=== PATIENT | male | born 2000 | race Native Hawaiian/Other Pacific Islander ===

== ENCOUNTER 2021-09-12 13:21 | Emergency (ER) | payer BC ==
[~2021-09-12] VITALS: Ht 170.1 cm; Wt 58.7 kg
--- NOTE | 2021-09-12 14:09 | ED Abdominal Pain ---
General Stated Complaint: ABD PAIN Source of Information: Patient Exam Limitations: No Limitations (ESTHER HAWTHORNE) History of Present Illness Date Seen by Provider: September 12, 2021 Time Seen by Provider: 14:07 Initial Comments Patient is a 20-year-old male who presents ED with abdominal pain. Pain started around 12:00 today. Patient woke up with a dull achy pain to his mid abdomen. Started in his lower abdomen and radiate upwards. Patient states he tried to have a bowel movement without any improvement. Attempted to take a shower with very minimal improvement. Pain started improving while sitting out in the waiting room. Nausea without vomiting. No diarrhea. Normal bowel movements. No history of previous abdominal surgery. Denies any urinary symptoms such as hematuria, frequent urination, back pain, flank pain. Denies any fever. Denies taking thing for pain. No history of previous symptoms. (ESTHER HAWTHORNE) Allergies and Home Medications Allergies Coded Allergies: No Known Drug Allergies (Unverified , 09/12/21) Patient Home Medication List Home Medication List Reviewed: Yes (ESTHER HAWTHORNE) Amoxicillin/Potassium Clav (Amox Tr-K Clv 875-125 mg Tab) 875 Mg-125 Mg Tablet, 1 EACH PO BID Prescribed by: CAMRON LANCASTER on 09/12/21 1532 Review of Systems Review of Systems Constitutional: No chills, No diaphoresis, No malaise, No weakness EENTM: No Ear Drainage, No Ear Pain, No Mouth Pain Respiratory: Denies Cough, Denies Orthopnea, Denies Shortness of Air Cardiovascular: Denies Chest Pain, Denies Edema Gastrointestinal: Abdominal Pain; Denies Diarrhea; Nausea; Denies Vomiting Genitourinary: Denies Burning, Denies Discharge Musculoskeletal: No back pain, No joint pain Skin: No change in color, No change in hair/nails (ESTHER HAWTHORNE) All Other Systems Reviewed Negative Unless Noted: Yes (ESTHER HAWTHORNE) Physical Exam Vital Signs Vital Signs - First Documented 09/12/21 09/12/21 14:11 15:30 Temp 36.6 Pulse 69 Resp 16 B/P (MAP) 128/97 (107) Pulse Ox 99 O2 Delivery Face Tent (LATOYA MOSQUERA MD) Vital Signs Capillary Refill : (ESTHER HAWTHORNE) Height/Weight/BMI Height: '" Weight: lbs. oz. kg; BMI Method: General Appearance: WD/WN, no apparent distress HEENT: PERRL/EOMI, normal ENT inspection, TMs normal, pharynx normal Neck: non-tender, full range of motion, supple Respiratory: chest non-tender, lungs clear, normal breath sounds, no respiratory distress Cardiovascular: regular rate, rhythm, no edema, no gallop, no JVD Gastrointestinal: normal bowel sounds, soft, no organomegaly, tenderness (Right lower quadrant tenderness on palpation) Extremities: normal range of motion, non-tender, normal inspection, no pedal e gama Back: normal inspection, no CVA tenderness, no vertebral tenderness Neurologic/Psychiatric: loading dock hand II-XII nml as tested, no motor/sensory deficits, alert, normal mood/affect (ESTHER HAWTHORNE) Progress/Results/Core Measures Results/Orders Lab Results Laboratory Tests Test 09/12/21 14:02 09/12/21 14:54 Range/Units White Blood Count 5.7 4.3-11.0 10^3/uL Red Blood Count 5.77 H 4.30-5.52 10^6/uL Hemoglobin 17.4 13.3-17.7 g/dL Hematocrit 50 40-54 % Mean Corpuscular Volume 87 80-99 fL Mean Corpuscular Hemoglobin 30 25-34 pg Mean Corpuscular Hemoglobin Concent 35 32-36 g/dL Red Cell Distribution Width 11.9 10.0-14.5 % Platelet Count 240 130-400 10^3/uL Mean Platelet Volume 9.4 9.0-12.2 fL Immature Granulocyte % (Auto) 0 % Neutrophils (%) (Auto) 62 42-75 % Lymphocytes (%) (Auto) 31 12-44 % Monocytes (%) (Auto) 6 0-12 % Eosinophils (%) (Auto) 0 0-10 % Basophils (%) (Auto) 1 0-10 % Neutrophils # (Auto) 3.6 1.8-7.8 10^3/uL Lymphocytes # (Auto) 1.8 1.0-4.0 10^3/uL Monocytes # (Auto) 0.4 0.0-1.0 10^3/uL Eosinophils # (Auto) 0.0 0.0-0.3 10^3/uL Basophils # (Auto) 0.0 0.0-0.1 10^3/uL Immature Granulocyte # (Auto) 0.0 0.0-0.1 10^3/uL Sodium Level 138 135-145 MMOL/L Potassium Level 4.0 3.6-5.0 MMOL/L Chloride Level 100 98-107 MMOL/L Carbon Dioxide Level 27 21-32 MMOL/L Anion Gap 11 5-14 MMOL/L Blood Urea Nitrogen 15 7-18 MG/DL Creatinine 1.09 0.60-1.30 MG/DL Estimat Glomerular Filtration Rate 100 BUN/Creatinine Ratio 14 Glucose Level 93 70-105 MG/DL Calcium Level 10.2 H 8.5-10.1 MG/DL Corrected Calcium 8.5-10.1 MG/DL Total Bilirubin 1.3 H 0.1-1.0 MG/DL Aspartate Amino Transf (AST/SGOT) 20 5-34 U/L Alanine Aminotransferase (ALT/SGPT) 17 0-55 U/L Alkaline Phosphatase 62 40-136 U/L Total Protein 8.5 H 6.4-8.2 GM/DL Albumin 5.0 H 3.2-4.5 GM/DL Lipase 25 8-78 U/L Urine Color YELLOW Urine Clarity CLEAR Urine pH 6.0 5-9 Urine Specific [place] 1.010 L 1.016-1.022 Urine Protein NEGATIVE NEGATIVE Urine Glucose (UA) NEGATIVE NEGATIVE Urine Ketones NEGATIVE NEGATIVE Urine Nitrite NEGATIVE NEGATIVE Urine Bilirubin NEGATIVE NEGATIVE Urine Urobilinogen 0.2 < = 1.0 MG/DL Urine Leukocyte Esterase NEGATIVE NEGATIVE Urine RBC (Auto) NEGATIVE NEGATIVE Urine RBC NONE /HPF Urine WBC NONE /HPF Urine Squamous Epithelial Cells NONE /HPF Urine Renal Epithelial Cells NONE /HPF Urine Crystals NONE /LPF Urine Bacteria NEGATIVE /HPF Urine Casts NONE /LPF Urine Mucus NEGATIVE /LPF Urine Culture Indicated NO (LATOYA MOSQUERA MD) Medications Given in ED Current Medications Medications Dose Ordered Sig/Katie Route Start Time Stop Time Status Last Admin Dose Admin Iohexol 100 ml ONCE ONCE IV 09/12/21 14:15 09/12/21 14:16 DC 09/12/21 14:34 80 ML Sodium Chloride 10 ml NEEDED PRN IV 09/12/21 14:15 09/12/21 15:31 DC 09/12/21 14:34 10 ML (LATOYA MOSQUERA MD) Vital Signs/I&O 09/12/21 09/12/21 14:11 15:30 Temp 36.6 Pulse 69 64 Resp 16 20 B/P (MAP) 128/97 (107) 121/89 Pulse Ox 99 O2 Delivery Face Tent Room Air (LATOYA MOSQUERA MD) Departure Communication (PCP) Patient with mid to right lower quad abdominal tenderness. Patient afebrile with stable vital signs. Normal white blood count, kidney function, pancreatic function and liver function. Due to the location of pain CT abdomen pelvis was ordered. Did show mild prominent appendix 7 mm without any stranding, edema, fluid collection, or inflammation. No evidence of appendicolith. reevaluated patient he has no acute pain to this location. He states pain has resolved. Pain was improving while traveling here to the ER. Negative Rovsing and psoas sign. Reevaluated patient without any tenderness. Patient was observed here without any change in pain. Due to negative lab work and no evidence of stranding or inflammation around the appendix we will continue with observation at this time. Discussed patient with Dr. Miller general surgery who recommends short duration of Augmentin for 5 days with observation. Patient states he feels much better at this time. If any worsening symptoms such as severe right lower quadrant pain vomiting fever to return back to ED for further evaluation. Patient has no epigastric tenderness. No pain with eating. No urinary symptoms with negative urinalysis. Unclear etiology of the abdominal pain but states he did pass some gas which seemed to improve his pain. (ESTHER HAWTHORNE) Impression Primary Impression: Abdominal pain Disposition: HOME, SELF-CARE Condition: Stable Departure-Patient Inst. Decision time for Depature: 15:50 (ESTHER HAWTHORNE) Referrals: NO,LOCAL PHYSICIAN (PCP/Family) Primary Care Physician Patient Instructions: Abdominal Pain, Adult ED Scripts Amoxicillin/Potassium Clav (Amox Tr-K Clv 875-125 mg Tab) 875 Mg-125 Mg Tablet 1 EACH PO BID for 5 Days, #10 TAB Prov: ESTHER HAWTHORNE 09/12/21 ATTENDING PHYSICIAN NOTE: I was physically present as attending physician in the emergency department during the care of this patient, but I was not directly involved in the decision making or delivery of care for this patient. (LATOYA MOSQUERA MD) ESTHER HAWTHORNE September 12, 2021 14:09 LATOYA MOSQUERA MD September 12, 2021 22:01
[2021-09-12 14:12] LABS: BASOPHILS % (AUTO) 1 % (0-10); EOSINOPHILS % (AUTO) 0 % (0-10); HEMATOCRIT 50 % (40-54); HEMOGLOBIN 17.4 g/dL (13.3-17.7); LYMPHOCYTES # (AUTO) 1.8 10^3/uL (1.0-4.0); LYMPHOCYTES % (AUTO) 31 % (12-44); MEAN CORPUSCULAR HEMOGLOBIN 30 pg (25-34); MEAN CORPUSCULAR HGB CONC 35 g/dL (32-36); MEAN CORPUSCULAR VOLUME 87 fL (80-99); MEAN PLATELET VOLUME 9.4 fL (9.0-12.2); MONOCYTES # (AUTO) 0.4 10^3/uL (0.0-1.0); MONOCYTES % (AUTO) 6 % (0-12); NEUTROPHILS # (AUTO) 3.6 10^3/uL (1.8-7.8); NEUTROPHILS % (AUTO) 62 % (42-75); PLATELET COUNT 240 10^3/uL (130-400); WHITE BLOOD COUNT 5.7 10^3/uL (4.3-11.0)
[2021-09-12] MEDS ORDERED: CATHETER FLUSH 10 ML SYR IV PRN (14:15)
[2021-09-12] MEDS ORDERED: HOLD METFORMIN - RECEIVED CONTRAST 20 ML VIAL IV SCH (14:15)
[2021-09-12] MEDS ORDERED: NS 100 ML (IVPB) BAG IV ONE (14:15)
[2021-09-12] MEDS ORDERED: IOHEXOL 350 MG/ML 100 ML (OMNIPAQUE 350) VIAL IV ONE (14:15)
[2021-09-12 14:26] LABS: CHLORIDE 100 MMOL/L (98-107); SODIUM 138 MMOL/L (135-145)
[2021-09-12 14:27] LABS: CALCIUM 10.2 MG/DL (8.5-10.1)
[2021-09-12 14:28] LABS: GLUCOSE 93 MG/DL (70-105)
[2021-09-12 14:29] LABS: TOTAL PROTEIN 8.5 GM/DL (6.4-8.2)
[2021-09-12 14:30] LABS: BILIRUBIN,TOTAL 1.3 MG/DL (0.1-1.0); CARBON DIOXIDE 27 MMOL/L (21-32)
[2021-09-12 14:32] LABS: ALKALINE PHOSPHATASE 62 U/L (40-136); CREATININE SERUM 1.09 MG/DL (0.60-1.30); GFR ESTIMATED 100
[2021-09-12 14:33] LABS: BUN/CREATININE RATIO 14
[2021-09-12 14:35] LABS: ALANINE AMINOTRANSFERASE 17 U/L (0-55); LIPASE 25 U/L (8-78)
--- NOTE | 2021-09-12 14:54 | Diagnostic Imaging Report ---
PROCEDURE: CT abdomen and pelvis with contrast. TECHNIQUE: Multiple contiguous axial images were obtained through the abdomen and pelvis after administration of intravenous contrast. Auto Exposure Controls were utilized during the CT exam to meet ALARA standards for radiation dose reduction. All CT scans use one or more of the following dose optimizing techniques: automated exposure control, MA and/or KvP adjustment based on patient size and exam type or iterative reconstruction. INDICATION: Severe abdominal pain the last 2 hours. Right lower quadrant pain. COMPARISON: None FINDINGS: Lung bases are clear. The liver demonstrates no focal lesions. The spleen appears normal. The pancreas is normal. The adrenal glands appear normal. The kidneys demonstrate no hydronephrosis and no enhancing lesions. The bowel loops are nondistended without obstruction. These structures were thought to represent the appendix appears mildly prominent in diameter, measuring 7 mm (image 17 series 4). No significant surrounding edema is seen. No rim-enhancing fluid collections are identified. No free fluid or free air is seen. No acute osseous abnormality is identified. IMPRESSION: 1. The appendix is borderline prominent measuring 7 mm in diameter. Although appendicitis is not excluded, no significant periappendiceal edema or free fluid is seen. Dictated by: Dictated on workstation # [id number]
[2021-09-12 15:00] LABS: BILIRUBIN,URINE NEGATIVE (NEGATIVE); CLARITY,URINE CLEAR; COLOR,URINE YELLOW; GLUCOSE, URINE (UA) NEGATIVE (NEGATIVE); KETONES,URINE NEGATIVE (NEGATIVE); LEUKOCYTE ESTERASE ,URINE NEGATIVE (NEGATIVE); NITRITE,URINE NEGATIVE (NEGATIVE); PROTEIN,URINE NEGATIVE (NEGATIVE)
[2021-09-12 15:12] LABS: BACTERIA,URINE NEGATIVE /HPF
[2021-09-12 15:30] VITALS: BP 121/89
[2021-09-12] MEDS ORDERED: AMOX1TAB12 PO (15:32)
== END 2021-09-12 15:25 | disposition home or self-care (01) ==
LOC: ER 13:24
DX: K38.9 Disease of appendix, unspecified (principal)
CPT/HCPCS: 36415; 74177; 80053; 81000; 83690; 85025